=== PATIENT | male | born 1950 | race Caucasian/White ===

== ENCOUNTER 2022-06-16 06:14 | Day surgery (SDC) | payer MEDICARE ==
[2022-06-14 14:42] VITALS: BMI 35.6
[2022-06-16] MEDS ORDERED: Lidocaine 1% MPF 2 ML VIAL ONE (07:05)
[2022-06-16] MEDS ORDERED: Phenylephrine 10 MG/ML VIAL ONE (07:23)
[2022-06-16] MEDS ORDERED: Lidocaine 1% PF 5 ML VIAL ONE (08:23)
[2022-06-16] MEDS ORDERED: PROPOFOL 200 MG/20 ML VIAL ONE (08:23)
[2022-06-16] MEDS ORDERED: PHENYLEPHRINE-NS 100 MCG/ML 10 ML SYRINGE ONE (08:23)
== END 2022-06-16 10:30 | disposition home or self-care (01) ==
LOC: SDC 06:14
PROVIDERS: ATTEND Internal Medicine Gastroenterology
PROC: 0DBK8ZX Excision of Ascending Colon, Via Natural or Artificial Opening Endoscopic, Diagnostic (ICD-10-PCS; principal; 2022-06-16)
PROC: 0DBL8ZX Excision of Transverse Colon, Via Natural or Artificial Opening Endoscopic, Diagnostic (ICD-10-PCS; 2022-06-16)
PROC: 0DBN8ZX Excision of Sigmoid Colon, Via Natural or Artificial Opening Endoscopic, Diagnostic (ICD-10-PCS; 2022-06-16)
DX: Z12.11 Encounter for screening for malignant neoplasm of colon (principal); D12.2 Benign neoplasm of ascending colon; D12.3 Benign neoplasm of transverse colon; D12.5 Benign neoplasm of sigmoid colon; G47.30 Sleep apnea, unspecified; G20 Parkinson's disease; G71.00 Muscular dystrophy, unspecified; M19.90 Unspecified osteoarthritis, unspecified site; Z87.891 Personal history of nicotine dependence; Z88.5 Allergy status to narcotic agent
CPT/HCPCS: 88305; J2370; J2704